=== PATIENT | female | born 1935 | race Hispanic/Latino ===

== ENCOUNTER 2020-11-06 22:10 | Inpatient (IN) | payer MEDICARE ==
[~2020-11-06] VITALS: Ht 149.9 cm; Wt 47.6 kg
[2020-11-06 23:58] LABS: BASOPHILS # (AUTO) 0.1 (0.0-0.1); BASOPHILS % 0.9 % (0.0-1.0); EOSINOPHILS % 0.6 % (0.0-6.0); HEMATOCRIT 42.6 % (34.2-44.1); HEMOGLOBIN 14.1 g/dL (12.0-16.0); LYMPHOCYTES # (AUTO) 0.8 (1.0-3.2); MEAN CORPUSCULAR HEMOGLOBIN 31.9 pg (28-32); MEAN CORPUSCULAR HGB CONC 33.1 g/dL (31-35); MEAN CORPUSCULAR VOLUME 96.4 fL (81-99); MONOCYTES # (AUTO) 0.7 (0.2-0.8); MONOCYTES % 10.4 % (4.4-11.3); NEUTROPHILS # (AUTO) 5.2 (2.1-6.9); NEUTROPHILS % 75.7 % (38.7-80.0); PLATELET COUNT 156 x10e3/uL (140-360); RED BLOOD COUNT 4.42 x10e6/uL (3.6-5.1); RED CELL DISTRIBUTION WIDTH 13.3 % (11.7-14.4)
[2020-11-07 00:19] LABS: ALBUMIN 3.4 g/dL (3.5-5.0); ALBUMIN/GLOBULIN RATIO 0.8 (0.8-2.0); ANION GAP 18.3 mmol/L (8-16); CALCIUM 9.5 mg/dL (8.4-10.2); CREATININE, SERUM 1.26 mg/dL (0.57-1.11); POTASSIUM 4.3 mmol/L (3.5-5.1)
[2020-11-07 00:25] LABS: CREATINE KINASE MB 2.2 ng/mL (0-5.0)
[2020-11-07 01:42] LABS: CLARITY,URINE SL CLOUDY (CLEAR); COLOR,URINE YELLOW (YELLOW); LEUKOCYTE ESTERASE ,URINE NEGATIVE (NEGATIVE); NITRITE,URINE NEGATIVE (NEGATIVE)
[2020-11-07 01:43] LABS: KETONES,URINE NEGATIVE (NEGATIVE); PROTEIN,URINE DIPSTICK TRACE (NEGATIVE); URINE UROBILINOGEN 0.2 mg/dL (0.2 - 1)
[2020-11-07] MEDS ORDERED: SODIUM CHLORIDE FLUSH 10 ML SYR INJ PRN (01:45)
[2020-11-07] MEDS: LACTULOSE SYRUP 20 GM/30 ML UDC PO PRN ×3 (02:00→11:36)
[2020-11-07 02:23] LABS: BACTERIA,URINE MODERATE /HPF; EPITHELIAL CELLS,URINE FEW /LPF; RBC,URINE >50 /HPF (0-5)
[2020-11-07] MEDS ORDERED: ONDANSETRON HCL INJ 2MG/ML 2ML 2 MG/ML VIAL IV PRN (03:00)
[2020-11-07] MEDS ORDERED: CEFTRIAXONE SOD 1 GM 50 ML IV SCH (10:30)
[2020-11-07] MEDS: CEFTRIAXONE SOD 1 GM in SODIUM CHLORIDE 0.9% 50ML 50 ML IV SCH (11:36)
[2020-11-07 13:53] VITALS: BP 130/51
[2020-11-07] MEDS ORDERED: FOLIC ACID0.4 MG PO (14:13)
[2020-11-07] MEDS ORDERED: ATORVASTATIN CA20 MG PO (14:13)
[2020-11-07] MEDS ORDERED: ENALAPRIL-HCTZ1 EACH PO (14:13)
[2020-11-07] MEDS ORDERED: VITAMIN B-121000 MCG PO (14:13)
[2020-11-07] MEDS ORDERED: OMEPRAZOLE40 MG PO (14:13)
[2020-11-07] MEDS ORDERED: FUROSEMIDE40 MG PO (14:13)
[2020-11-07] MEDS ORDERED: ALDACTONE100 MG PO (14:13)
[2020-11-07] MEDS ORDERED: LACTULOSE20 GM/30 M PO (14:25)
[2020-11-07 16:00] VITALS: BP 112/71
[2020-11-07] MEDS: PROPRANOLOL HCL 10 MG TAB PO SCH (16:36)
[2020-11-07] MEDS ORDERED: PROPRANOLOL HCL 40 MG TAB PO SCH (17:00)
[2020-11-07] MEDS ORDERED: ASPIRIN 325 MG TAB PO ONE (20:15)
[2020-11-07 20:56] VITALS: BP 136/69
[2020-11-07 21:00] VITALS: BP 136/69
[2020-11-07] MEDS ORDERED: ASPIRIN 325 MG TAB ONE (21:48)
[2020-11-08] VITALS (8 sets, daily range): BP systolic 113–128; BP diastolic 34–59
[2020-11-08] MEDS ORDERED: ATROPINE SULFATE 1 MG/ML VIAL IV ONE (01:00)
[2020-11-08 06:36] LABS: BASOPHILS # (AUTO) 0.1 (0.0-0.1); EOSINOPHILS # (AUTO) 0.1 (0.0-0.4); EOSINOPHILS % 2.7 % (0.0-6.0); HEMATOCRIT 36.6 % (34.2-44.1); HEMOGLOBIN 12.3 g/dL (12.0-16.0); LYMPHOCYTES # (AUTO) 0.7 (1.0-3.2); LYMPHOCYTES % 13.9 % (18.0-39.1); MEAN CORPUSCULAR HEMOGLOBIN 32.5 pg (28-32); MEAN CORPUSCULAR HGB CONC 33.6 g/dL (31-35); MEAN CORPUSCULAR VOLUME 96.8 fL (81-99); MONOCYTES # (AUTO) 0.5 (0.2-0.8); NEUTROPHILS # (AUTO) 3.5 (2.1-6.9); NEUTROPHILS % 72.2 % (38.7-80.0); PLATELET COUNT 131 x10e3/uL (140-360); RED BLOOD COUNT 3.78 x10e6/uL (3.6-5.1); RED CELL DISTRIBUTION WIDTH 13.2 % (11.7-14.4)
[2020-11-08 07:07] LABS: ALBUMIN 2.8 g/dL (3.5-5.0); ALBUMIN/GLOBULIN RATIO 0.9 (0.8-2.0); ANION GAP 12.6 mmol/L (8-16); CALCIUM 8.8 mg/dL (8.4-10.2); CREATININE, SERUM 1.37 mg/dL (0.57-1.11); POTASSIUM 4.6 mmol/L (3.5-5.1)
[2020-11-08 07:23] LABS: CHOL/HDL RATIO 2.8 (3.0-3.6)
[2020-11-08 08:01] LABS: PROTHROMBIN TIME 16.1 seconds (11.9-14.5)
[2020-11-08 08:04] LABS: INR 1.21
[2020-11-08] MEDS ORDERED: ASPIRIN 81 MG ENTERIC COATED PO ONE (08:27)
[2020-11-08] MEDS ORDERED: HEPARIN SOD (PORCINE) 5,000 UNIT/ML VIAL ONE (08:28)
[2020-11-08] MEDS: PROPRANOLOL HCL 10 MG TAB PO SCH (09:00)
[2020-11-08] MEDS: ASPIRIN 81 MG CHEW TAB PO SCH (10:05)
[2020-11-08] MEDS: HEPARIN SOD (PORCINE) 5,000 UNIT/ML VIAL SC SCH ×2 (10:06→21:34)
[2020-11-08] MEDS ORDERED: CEFTRIAXONE SOD 1 GM VIAL ONE (11:44)
[2020-11-08] MEDS ORDERED: SODIUM CHLORIDE 0.9% 50ML 50 ML ONE ×2 (11:45→12:00)
[2020-11-08] MEDS: CEFTRIAXONE SOD 1 GM in SODIUM CHLORIDE 0.9% 50ML 50 ML IV SCH (12:06)
[2020-11-08] MEDS ORDERED: ATORVASTATIN 20 MG TAB PO SCH (21:00)
[2020-11-09] VITALS (8 sets, daily range): BP systolic 106–140; BP diastolic 40–56
[2020-11-09] MEDS: ASPIRIN 81 MG CHEW TAB PO SCH (08:53)
[2020-11-09] MEDS: HEPARIN SOD (PORCINE) 5,000 UNIT/ML VIAL SC SCH ×2 (08:54→21:00)
[2020-11-10] VITALS: BP 149/57
[2020-11-10] MEDS: DONEPEZIL HCL 5 MG TAB PO SCH ×2 (05:19→20:55)
[2020-11-10 07:05] LABS: BASOPHILS % 0.9 % (0.0-1.0); EOSINOPHILS # (AUTO) 0.1 (0.0-0.4); EOSINOPHILS % 2.7 % (0.0-6.0); HEMATOCRIT 35.8 % (34.2-44.1); LYMPHOCYTES # (AUTO) 0.7 (1.0-3.2); LYMPHOCYTES % 20.9 % (18.0-39.1); MEAN CORPUSCULAR HEMOGLOBIN 32.9 pg (28-32); MEAN CORPUSCULAR HGB CONC 33.5 g/dL (31-35); MEAN CORPUSCULAR VOLUME 98.1 fL (81-99); MONOCYTES # (AUTO) 0.5 (0.2-0.8); MONOCYTES % 15.3 % (4.4-11.3); NEUTROPHILS % 59.9 % (38.7-80.0); PLATELET COUNT 109 x10e3/uL (140-360); RED BLOOD COUNT 3.65 x10e6/uL (3.6-5.1); RED CELL DISTRIBUTION WIDTH 12.9 % (11.7-14.4)
[2020-11-10 07:29] LABS: ALBUMIN 2.6 g/dL (3.5-5.0); ALBUMIN/GLOBULIN RATIO 0.8 (0.8-2.0); ANION GAP 13.1 mmol/L (8-16); CALCIUM 8.5 mg/dL (8.4-10.2); CREATININE, SERUM 0.99 mg/dL (0.57-1.11); POTASSIUM 4.1 mmol/L (3.5-5.1)
[2020-11-10 07:42] LABS: THYROID STIMULATING HORMONE 0.853 uIU/mL (0.350-4.940)
[2020-11-10 07:46] VITALS: BP 135/84
[2020-11-10] MEDS: ASPIRIN 81 MG CHEW TAB PO SCH (08:49)
[2020-11-10 11:21] VITALS: BP 139/46
[2020-11-10 15:45] VITALS: BP 143/60
[2020-11-10] MEDS: LACTULOSE SYRUP 20 GM/30 ML UDC PO SCH (17:00)
[2020-11-10 19:56] VITALS: BP 150/55
[2020-11-10 20:00] VITALS: BP 150/55
[2020-11-11] VITALS: BP 139/54
[2020-11-11 04:00] VITALS: BP 140/54
[2020-11-11 07:42] VITALS: BP 140/54
[2020-11-11 08:08] VITALS: BP 136/50
[2020-11-11] MEDS: ASPIRIN 81 MG CHEW TAB PO SCH (09:48)
[2020-11-11] MEDS: LACTULOSE SYRUP 20 GM/30 ML UDC PO SCH (09:48)
[2020-11-11 11:13] VITALS: BP 125/63
[2020-11-11] MEDS ORDERED: ASPIRIN CHEW81 MG PO (14:06)
[2020-11-11] MEDS ORDERED: ARICEPT5 MG PO (14:06)
[2020-11-11 15:36] VITALS: BP 113/74
== END 2020-11-11 16:04 | disposition home or self-care (01) | DRG 64 ==
LOC: ER 11-07 00:04 → ERHOLD 11-07 01:40 → MED/SURG2 11-07 13:26 → OBSVTOIN 11-07 21:57
PROVIDERS: ADMIT Internal Medicine; ATTEND Internal Medicine
DX: I63.81 Other cerebral infarction due to occlusion or stenosis of small artery (principal); G93.41 Metabolic encephalopathy; I10 Essential (primary) hypertension; E78.5 Hyperlipidemia, unspecified; K72.90 Hepatic failure, unspecified without coma; R53.81 Other malaise; Z88.8 Allergy status to other drugs, medicaments and biological substances; K74.60 Unspecified cirrhosis of liver
CPT/HCPCS: 36415; 70450; 70551; 71046; 80053; 80061; 81001; 82140; 82550; 82553; 82607; 83036; 83090; 84443; 84484; 85025; 85610; 87086; 93005; 93306; 93880; 95812; 97139; 99251; 99284; J0461; J0696; J1644; J2405; U0002

== ENCOUNTER → 2021-03-06 | Outpatient (CLI) | payer MEDICARE ==
[~2021-03-06] MED LIST: ALDACTONE100 MG PO; ARICEPT5 MG PO; ASPIRIN CHEW81 MG PO; ATORVASTATIN CA20 MG PO; ENALAPRIL-HCTZ1 EACH PO; FOLIC ACID0.4 MG PO; FUROSEMIDE40 MG PO; LACTULOSE20 GM/30 M PO; OMEPRAZOLE40 MG PO; VITAMIN B-121000 MCG PO
== END ==
LOC: RAD 10:13
PROVIDERS: ATTEND Family Medicine
DX: J90 Pleural effusion, not elsewhere classified (principal)
CPT/HCPCS: 71046

== ENCOUNTER → 2021-03-27 | Outpatient (CLI) | payer MEDICARE ==
[2021-03-27 09:11] LABS: HEMOGLOBIN 9.9 g/dL (12.0-16.0)
[2021-03-27 10:31] LABS: INR 1.28; PROTHROMBIN TIME 16.7 seconds (11.9-14.5)
[2021-03-27 14:50] LABS: BODY FLUID APPEARANCE CLEAR; BODY FLUID COLOR YELLOW; BODY FLUID TYPE PLEURAL
[2021-03-27 14:51] LABS: RBC,BODY FLUID < 2000 cells/uL; WBC,BODY FLUID 44 cells/uL
[2021-03-27 17:09] LABS: LYMPHOCYTES,BODY FLUID 35 %; MONO/MACROPHG,BODY FLUID 39 %; NEUTROPHILS,BODY FLUID 7 %; OTHER CELLS,BODY FLUID 19 %
== END ==
LOC: US 08:46
PROVIDERS: ATTEND Internal Medicine Critical Care Medicine
DX: K74.60 Unspecified cirrhosis of liver (principal)
CPT/HCPCS: 32555; 36415; 71045; 83615; 84157; 84478; 85014; 85049; 85610; 85730; 88112; 88305; 89051